=== PATIENT | male | born 1950 | race Caucasian/White ===

== ENCOUNTER 2017-11-30 13:15 | Inpatient (IN) | payer MEDICAID ==
[~2017-11-30] VITALS: Ht 175.3 cm; Wt 86.2 kg
[~2017-11-30 13:15] MED LIST: ATOR20TA PO; FERR-63 PO; LEVO500T2 PO; LOSA25TA12 PO; METO25TA6 PO; OMEP20CA10 PO; SUCR1ORA PO
[2017-11-30] MEDS ORDERED: SODIUM CHLORIDE 0.9% 1,000 ML IV ONE ×2 (16:45→19:00)
[2017-11-30 17:17] LABS: BASOPHILS % 0.4 % (0.0-2.0); EOSINOPHILS % 6.8 % (0.0-5.0); HEMATOCRIT. 47.6 % (42.0-52.0); HEMOGLOBIN. 16.5 g/dL (14.0-18.0); LYMPHOCYTES % 19.1 % (20.0-50.0); MEAN CORPUSCULAR HEMOGLOBIN 30.5 pg (28.0-32.0); MEAN PLATELET VOLUME 8.3 fl (7.4-10.4); NEUTROPHILS % 67.7 % (40.0-76.0); PLATELET 225 x1000/uL (130-400); RED CELL DISTRIBUTION WIDTH 14.8 % (11.6-14.6)
[2017-11-30 17:21] LABS: CHLORIDE 102 mEq/L (98-107)
[2017-11-30 17:23] LABS: PARTIAL THROMBOPLASTIN TIME 29.9 sec (23.4-31.0); PROTHROMBIN TIME 10.3 sec (9.1-11.1)
[2017-11-30 17:29] LABS: ETHANOL BLOOD < 10 mg/dL
[2017-11-30] MEDS ORDERED: PANTOPRAZOLE SODIUM 40 MG/VIAL IV ONE (19:00)
[2017-12-01] VITALS: BP 143/77
[2017-12-01] MEDS: DEXT 5%/0.45% NACL 1000ML 1,000 ML IV SCH ×3 (03:25→21:49)
[2017-12-01 07:13] LABS: CHLORIDE 110 mEq/L (98-107)
[2017-12-01 07:20] LABS: BASOPHILS % 0.8 % (0.0-2.0); EOSINOPHILS % 12.4 % (0.0-5.0); HEMATOCRIT. 40.6 % (42.0-52.0); HEMOGLOBIN. 13.8 g/dL (14.0-18.0); LYMPHOCYTES % 15.3 % (20.0-50.0); MEAN CORPUSCULAR VOLUME 88.2 fL (80.0-94.0); MEAN PLATELET VOLUME 8.2 fl (7.4-10.4); MONOCYTES % 6.7 % (2.0-8.0); NEUTROPHILS % 64.8 % (40.0-76.0); PLATELET 184 x1000/uL (130-400); RED CELL DISTRIBUTION WIDTH 14.6 % (11.6-14.6)
[2017-12-01 08:00] VITALS: BP 119/69
[2017-12-01] MEDS: PANTOPRAZOLE SODIUM 40 MG/VIAL IV SCH ×2 (08:38→21:49)
[2017-12-01] MEDS ORDERED: CLONIDINE 0.1MG TABLET PO PRN (11:30)
[2017-12-01 12:00] VITALS: BP 112/73
[2017-12-01] MEDS: SUCRALFATE 1 G/10 ML UDC PO SCH ×3 (12:07→21:50)
[2017-12-01] MEDS: PATIENT OWN MED PO SCH ×2 (12:08→17:49)
[2017-12-01 16:00] VITALS: BP 111/70
[2017-12-01 20:00] VITALS: BP 123/72
[2017-12-02] VITALS: BP 130/64
[2017-12-02 04:00] VITALS: BP 143/78
[2017-12-02] MEDS: DEXT 5%/0.45% NACL 1000ML 1,000 ML IV SCH ×3 (06:23→21:18)
[2017-12-02] MEDS: SUCRALFATE 1 G/10 ML UDC PO SCH ×4 (06:23→21:19)
[2017-12-02 07:01] LABS: HEMATOCRIT 39.4 % (42.0-52.0); HEMOGLOBIN 13.7 g/dL (14.0-18.0); MEAN CORPUSCULAR HEMOGLOBIN 30.5 pg (28.0-32.0); MEAN CORPUSCULAR VOLUME 87.9 fL (80.0-94.0); PLATELET 184 x1000/uL (130-400); RED BLOOD CELL COUNT 4.48 mill/uL (4.7-6.1); RED CELL DISTRIBUTION WIDTH 14.4 % (11.6-14.6)
[2017-12-02] MEDS ORDERED: DIATR MEGLU/DIATRIZOATE SOLN 30ML PO SCH (09:00)
[2017-12-02] MEDS: PATIENT OWN MED PO SCH ×2 (09:18→17:00)
[2017-12-02] MEDS: PANTOPRAZOLE SODIUM 40 MG/VIAL IV SCH ×2 (09:18→21:19)
[2017-12-02] MEDS ORDERED: IOHEXOL-300 100 ML BOTTLE ONE (14:31)
[2017-12-02] MEDS ORDERED: TAMSULOSIN HCL 0.4MG SR CAPSULE PO NR (17:20)
[2017-12-02 19:23] VITALS: BP 147/75
[2017-12-03] VITALS: BP 122/69
[2017-12-03] MEDS: DEXT 5%/0.45% NACL 1000ML 1,000 ML IV SCH ×2 (03:30→20:26)
[2017-12-03 04:21] VITALS: BP 127/64
[2017-12-03] MEDS: SUCRALFATE 1 G/10 ML UDC PO SCH ×4 (06:20→21:29)
[2017-12-03 07:54] LABS: INR 1.1; PARTIAL THROMBOPLASTIN TIME 28.4 sec (23.4-31.0); PROTHROMBIN TIME 10.6 sec (9.1-11.1)
[2017-12-03 08:00] VITALS: BP 120/73
[2017-12-03 08:08] LABS: HEMOGLOBIN. 14.8 g/dL (14.0-18.0); MEAN CORPUSCULAR HEMOGLOBIN 30.4 pg (28.0-32.0); MEAN CORPUSCULAR VOLUME 88.1 fL (80.0-94.0); MEAN PLATELET VOLUME 8.4 fl (7.4-10.4); PLATELET 192 x1000/uL (130-400); RED BLOOD CELL COUNT 4.88 mill/uL (4.7-6.1); RED CELL DISTRIBUTION WIDTH 14.3 % (11.6-14.6)
[2017-12-03] MEDS: PATIENT OWN MED PO SCH ×2 (08:51→09:22)
[2017-12-03 09:00] LABS: CHLORIDE 107 mEq/L (98-107)
[2017-12-03] MEDS: PANTOPRAZOLE SODIUM 40 MG/VIAL IV SCH ×2 (09:22→21:29)
[2017-12-03] MEDS ORDERED: FENTANYL CITRATE/PF 50MCG/ML 2ML VIAL ONE (11:31)
[2017-12-03] MEDS ORDERED: MIDAZOLAM HCL 5 MG/5 ML VIAL ONE (11:31)
[2017-12-03] MEDS ORDERED: FENTANYL CITRATE/PF 50MCG/ML 2ML VIAL IV ONE (11:36)
[2017-12-03] MEDS ORDERED: MIDAZOLAM HCL 2 MG/2 ML VIAL IV ONE (11:36)
[2017-12-03 12:50] VITALS: BP 134/76
[2017-12-03 12:59] LABS: PLATELET ESTIMATE NORMAL
[2017-12-03 16:00] VITALS: BP 126/73
[2017-12-03 20:00] VITALS: BP 122/74
[2017-12-03] MEDS ORDERED: POTASSIUM CHLORIDE 20MEQ TABLET SR PO SCH (20:30)
[2017-12-04] VITALS: BP 120/75
[2017-12-04] MEDS: DEXT 5%/0.45% NACL 1000ML 1,000 ML IV SCH (03:31)
[2017-12-04 04:13] VITALS: BP 118/72
[2017-12-04] MEDS: SUCRALFATE 1 G/10 ML UDC PO SCH ×3 (06:36→16:27)
[2017-12-04 07:59] LABS: HEMATOCRIT 41.4 % (42.0-52.0); HEMOGLOBIN 14.5 g/dL (14.0-18.0); MEAN CORPUSCULAR HEMOGLOBIN 30.7 pg (28.0-32.0); MEAN CORPUSCULAR VOLUME 87.9 fL (80.0-94.0); PLATELET 208 x1000/uL (130-400); RED BLOOD CELL COUNT 4.72 mill/uL (4.7-6.1); RED CELL DISTRIBUTION WIDTH 14.7 % (11.6-14.6)
[2017-12-04 08:00] VITALS: BP 109/69
[2017-12-04] MEDS: PANTOPRAZOLE SODIUM 40 MG/VIAL IV SCH (09:03)
[2017-12-04] MEDS: PATIENT OWN MED PO SCH ×2 (09:03→16:27)
[2017-12-04 09:38] LABS: CHLORIDE 108 mEq/L (98-107)
[2017-12-04 12:00] VITALS: BP 131/74
[2017-12-04 16:00] VITALS: BP 123/78
[2017-12-04 16:50] VITALS: BP 128/75
== END 2017-12-04 17:30 | disposition home or self-care (01) | DRG 241 ==
LOC: ER 13:15 → EDBEDREQ 19:33 → ENRESERV 20:54 → 6WST 21:00
PROVIDERS: ADMIT Internal Medicine; ATTEND Internal Medicine
PROC: 0DB68ZX Excision of Stomach, Via Natural or Artificial Opening Endoscopic, Diagnostic (ICD-10-PCS; principal; 2017-12-03 12:00)
DX: K25.4 Chronic or unspecified gastric ulcer with hemorrhage (principal); C16.9 Malignant neoplasm of stomach, unspecified; C88.4 Extranodal marginal zone B-cell lymphoma of mucosa-associated lymphoid tissue [MALT-lymphoma]; C85.90 Non-Hodgkin lymphoma, unspecified, unspecified site; E61.1 Iron deficiency; D64.9 Anemia, unspecified; I10 Essential (primary) hypertension; I25.10 Atherosclerotic heart disease of native coronary artery without angina pectoris; K29.71 Gastritis, unspecified, with bleeding; K57.90 Diverticulosis of intestine, part unspecified, without perforation or abscess without bleeding; N40.0 Benign prostatic hyperplasia without lower urinary tract symptoms; I25.2 Old myocardial infarction; Z79.899 Other long term (current) drug therapy; Z92.21 Personal history of antineoplastic chemotherapy; Z87.11 Personal history of peptic ulcer disease; Z86.19 Personal history of other infectious and parasitic diseases
CPT/HCPCS: 36415; 71045; 74177; 80048; 83605; 84443; 84484; 85027; 85044; 86850; 86900; 88305; 88313; 93005; 93970; 96361; 96374; 99285; C9113; G0482; J2250; J3010; J3490; J7030; Q9963; Q9967

== ENCOUNTER 2018-02-01 15:23 | Inpatient (IN) | payer MEDICAID ==
[~2018-02-01] VITALS: Ht 172.7 cm; Wt 72.2 kg
[~2018-02-01 15:23] MED LIST changes: -LEVO500T2 PO; -LOSA25TA12 PO; -METO25TA6 PO; -OMEP20CA10 PO
[2018-02-01] MEDS ORDERED: SODIUM CHLORIDE 0.9% 1,000 ML IV ONE (15:38)
[2018-02-01 16:03] LABS: MEAN CORPUSCULAR HEMOGLOBIN 27.1 pg (28.0-32.0); MEAN CORPUSCULAR VOLUME 83.5 fL (80.0-94.0); MEAN PLATELET VOLUME 7.2 fl (7.4-10.4); PLATELET 724 x1000/uL (130-400); RED BLOOD CELL COUNT 2.46 mill/uL (4.7-6.1); RED CELL DISTRIBUTION WIDTH 18.1 % (11.6-14.6)
[2018-02-01 16:05] LABS: HEMATOCRIT. 20.6 % (42.0-52.0); HEMOGLOBIN. 6.7 g/dL (14.0-18.0)
[2018-02-01 16:10] LABS: CHLORIDE 80 mEq/L (98-107)
[2018-02-01 16:14] LABS: INR 1.2; PROTHROMBIN TIME 11.7 sec (9.1-11.1)
[2018-02-01 17:51] LABS: PLATELET ESTIMATE MARKEDLY INCREASED
[2018-02-01 21:00] VITALS: BP 100/54
[2018-02-01] MEDS: ONDANSETRON HCL 4MG/2ML INJ IV PRN (22:32)
[2018-02-01] MEDS: PANTOPRAZOLE 80 MG in SODIUM CHLORIDE 0.9% 100 ML IV SCH (22:48)
[2018-02-01 23:45] VITALS: BP 101/56
[2018-02-02] VITALS (14 sets, daily range): BP systolic 85–106; BP diastolic 37–57
[2018-02-02] MEDS: DEXT 5%/0.45% NACL KCL 20MEQ/L 1,000 ML IV SCH ×2 (03:24→11:46)
[2018-02-02 07:01] LABS: BASOPHILS % 0.4 % (0.0-2.0); EOSINOPHILS % 1.4 % (0.0-5.0); HEMATOCRIT. 21.9 % (42.0-52.0); HEMOGLOBIN. 7.3 g/dL (14.0-18.0); MEAN CORPUSCULAR HEMOGLOBIN 29.2 pg (28.0-32.0); MEAN CORPUSCULAR VOLUME 87.1 fL (80.0-94.0); MEAN PLATELET VOLUME 7.6 fl (7.4-10.4); MONOCYTES % 6.2 % (2.0-8.0); PLATELET 488 x1000/uL (130-400); RED BLOOD CELL COUNT 2.51 mill/uL (4.7-6.1); RED CELL DISTRIBUTION WIDTH 16.9 % (11.6-14.6)
[2018-02-02] MEDS: ONDANSETRON HCL 4MG/2ML INJ IV PRN (09:06)
[2018-02-02 09:17] LABS: CHLORIDE 86 mEq/L (98-107)
[2018-02-02] MEDS: PANTOPRAZOLE 80 MG in SODIUM CHLORIDE 0.9% 100 ML IV SCH ×2 (11:46→22:15)
[2018-02-02] MEDS ORDERED: DIATR MEGLU/DIATRIZOATE SOLN 30ML PO NR (13:00)
[2018-02-02] MEDS ORDERED: POTASSIUM CHLORIDE INJ 40 MEQ in DEXT 5% WATER 250 ML IV NR (13:30)
[2018-02-02] MEDS ORDERED: DIATR MEGLU/DIATRIZOATE SOLN 120ML ONE (14:22)
[2018-02-02] MEDS ORDERED: LEVOFLOXACIN 500MG PREMIX 100 ML IV SCH (19:00)
[2018-02-02] MEDS: LEVOFLOXACIN 500MG PREMIX 100 ML IV SCH (20:53)
[2018-02-02] MEDS ORDERED: POTASSIUM CHLORIDE INJ 40 MEQ in DEXT 5% WATER 500 ML IV NR (21:00)
[2018-02-03] VITALS: BP 92/59
[2018-02-03] MEDS: DEXT 5%/0.45% NACL KCL 20MEQ/L 1,000 ML IV SCH ×3 (02:26→20:17)
[2018-02-03 04:00] VITALS: BP 100/51
[2018-02-03 06:49] LABS: HEMATOCRIT. 24.5 % (42.0-52.0); HEMOGLOBIN. 8.2 g/dL (14.0-18.0); MEAN CORPUSCULAR VOLUME 86.7 fL (80.0-94.0); MEAN PLATELET VOLUME 7.3 fl (7.4-10.4); PLATELET 444 x1000/uL (130-400); RED BLOOD CELL COUNT 2.83 mill/uL (4.7-6.1); RED CELL DISTRIBUTION WIDTH 16.4 % (11.6-14.6)
[2018-02-03 07:41] LABS: CHLORIDE 96 mEq/L (98-107)
[2018-02-03 08:00] VITALS: BP 85/37
[2018-02-03] MEDS ORDERED: PANTOPRAZOLE SODIUM 40 MG/VIAL IV ONE (10:21)
[2018-02-03 10:53] LABS: PLATELET ESTIMATE SLIGHTLY INCREASED
[2018-02-03 12:00] VITALS: BP 90/58
[2018-02-03] MEDS: PANTOPRAZOLE 80 MG in SODIUM CHLORIDE 0.9% 100 ML IV SCH (13:08)
[2018-02-03] MEDS: SUCRALFATE 1 G/10 ML UDC PO SCH ×3 (13:09→23:17)
[2018-02-03 15:58] VITALS: BP 82/42
[2018-02-03 20:00] VITALS: BP 93/53
[2018-02-03] MEDS: LEVOFLOXACIN 500MG PREMIX 100 ML IV SCH (20:13)
[2018-02-03 21:45] LABS: CLARITY URINE CLEAR (CLEAR); COLOR URINE YELLOW (YELLOW); KETONES URINE NEGATIVE (NEGATIVE); LEUKOCYTE ESTERASE URINE NEGATIVE (NEGATIVE); NITRITE URINE NEGATIVE (NEGATIVE); OCCULT BLOOD URINE NEGATIVE (NEGATIVE); PH URINE 8.5 (4.5-8.0); PROTEIN URINE NEGATIVE (NEGATIVE); SPECIFIC GRAVITY URINE 1.013 (1.005-1.030)
[2018-02-04] VITALS (7 sets, daily range): BP systolic 91–120; BP diastolic 49–74
[2018-02-04] MEDS: DEXT 5%/0.45% NACL KCL 20MEQ/L 1,000 ML IV SCH ×4 (04:32→23:29)
[2018-02-04] MEDS: PANTOPRAZOLE 80 MG in SODIUM CHLORIDE 0.9% 100 ML IV SCH ×3 (04:33→17:51)
[2018-02-04] MEDS: SUCRALFATE 1 G/10 ML UDC PO SCH ×4 (05:13→23:25)
[2018-02-04 07:21] LABS: BASOPHILS % 0.5 % (0.0-2.0); EOSINOPHILS % 2.7 % (0.0-5.0); HEMATOCRIT. 24.3 % (42.0-52.0); LYMPHOCYTES % 7.1 % (20.0-50.0); MEAN CORPUSCULAR HEMOGLOBIN 29.4 pg (28.0-32.0); MEAN CORPUSCULAR VOLUME 88.7 fL (80.0-94.0); MEAN PLATELET VOLUME 7.5 fl (7.4-10.4); MONOCYTES % 5.7 % (2.0-8.0); PLATELET 418 x1000/uL (130-400); RED BLOOD CELL COUNT 2.74 mill/uL (4.7-6.1); RED CELL DISTRIBUTION WIDTH 16.9 % (11.6-14.6)
[2018-02-04 07:27] LABS: INR 1.2; PARTIAL THROMBOPLASTIN TIME 41.4 sec (23.4-31.0); PROTHROMBIN TIME 12.4 sec (9.1-11.1)
[2018-02-04 07:33] LABS: CHLORIDE 104 mEq/L (98-107)
[2018-02-04] MEDS ORDERED: SODIUM CHLORIDE 0.9% 10ML VIAL ONE (13:57)
[2018-02-04] MEDS ORDERED: MIDAZOLAM HCL 5 MG/5 ML VIAL IV PRN (16:20)
[2018-02-04] MEDS ORDERED: FENTANYL CITRATE/PF 50MCG/ML 2ML VIAL IV PRN (16:21)
[2018-02-04] MEDS ORDERED: FENTANYL CITRATE/PF 50MCG/ML 2ML VIAL ONE (16:23)
[2018-02-04] MEDS ORDERED: MIDAZOLAM HCL 5 MG/5 ML VIAL ONE (16:23)
[2018-02-04] MEDS: LEVOFLOXACIN 500MG PREMIX 100 ML IV SCH (20:30)
[2018-02-05] VITALS: BP 96/50
[2018-02-05] MEDS: PANTOPRAZOLE 80 MG in SODIUM CHLORIDE 0.9% 100 ML IV SCH ×3 (03:54→18:00)
[2018-02-05 04:00] VITALS: BP 103/64
[2018-02-05 05:43] LABS: BASOPHILS % 0.3 % (0.0-2.0); EOSINOPHILS % 3.1 % (0.0-5.0); HEMATOCRIT. 25.7 % (42.0-52.0); HEMOGLOBIN. 8.5 g/dL (14.0-18.0); LYMPHOCYTES % 7.9 % (20.0-50.0); MEAN CORPUSCULAR HEMOGLOBIN 28.7 pg (28.0-32.0); MEAN CORPUSCULAR VOLUME 86.8 fL (80.0-94.0); MONOCYTES % 6.7 % (2.0-8.0); PLATELET 417 x1000/uL (130-400); RED BLOOD CELL COUNT 2.96 mill/uL (4.7-6.1); RED CELL DISTRIBUTION WIDTH 16.9 % (11.6-14.6)
[2018-02-05 05:44] LABS: CHLORIDE 105 mEq/L (98-107)
[2018-02-05] MEDS: SUCRALFATE 1 G/10 ML UDC PO SCH ×4 (06:00→23:49)
[2018-02-05] MEDS: DEXT 5%/0.45% NACL KCL 20MEQ/L 1,000 ML IV SCH ×2 (06:44→14:43)
[2018-02-05 08:00] VITALS: BP 108/69
[2018-02-05 12:00] VITALS: BP 99/51
[2018-02-05 16:00] VITALS: BP 99/56
[2018-02-05 20:00] VITALS: BP 108/64
[2018-02-05] MEDS: LEVOFLOXACIN 500MG PREMIX 100 ML IV SCH (20:44)
[2018-02-05] MEDS: HYDROMORPHONE HCL/PF 2MG/ML CPJ IV PRN (23:04)
[2018-02-06] VITALS: BP 99/53
[2018-02-06] MEDS: PANTOPRAZOLE 80 MG in SODIUM CHLORIDE 0.9% 100 ML IV SCH (03:36)
[2018-02-06 04:00] VITALS: BP 101/55
[2018-02-06] MEDS: DEXT 5%/0.45% NACL KCL 20MEQ/L 1,000 ML IV SCH ×3 (07:36→21:10)
[2018-02-06 07:40] LABS: BASOPHILS % 0.3 % (0.0-2.0); EOSINOPHILS % 3.2 % (0.0-5.0); HEMATOCRIT. 25.8 % (42.0-52.0); HEMOGLOBIN. 8.5 g/dL (14.0-18.0); LYMPHOCYTES % 7.9 % (20.0-50.0); MEAN CORPUSCULAR HEMOGLOBIN 28.3 pg (28.0-32.0); MEAN CORPUSCULAR VOLUME 85.5 fL (80.0-94.0); MEAN PLATELET VOLUME 7.3 fl (7.4-10.4); MONOCYTES % 7.4 % (2.0-8.0); NEUTROPHILS % 81.2 % (40.0-76.0); PLATELET 406 x1000/uL (130-400); RED BLOOD CELL COUNT 3.02 mill/uL (4.7-6.1); RED CELL DISTRIBUTION WIDTH 17.1 % (11.6-14.6)
[2018-02-06 08:00] VITALS: BP 103/58
[2018-02-06] MEDS: HYDROMORPHONE HCL/PF 2MG/ML CPJ IV PRN ×3 (08:46→23:38)
[2018-02-06 11:06] LABS: CHLORIDE 102 mEq/L (98-107)
[2018-02-06 12:00] VITALS: BP 112/64
[2018-02-06] MEDS: SUCRALFATE 1 G/10 ML UDC PO SCH ×3 (12:31→23:19)
[2018-02-06] MEDS: PANTOPRAZOLE SODIUM 40 MG/VIAL IV SCH (17:18)
[2018-02-06 18:00] VITALS: BP_SYST 112; BP_SYST 116; BP_DIAS 64; BP_DIAS 68
[2018-02-06] MEDS: LEVOFLOXACIN 500MG PREMIX 100 ML IV SCH (21:06)
[2018-02-07] VITALS: BP 107/50
[2018-02-07 04:00] VITALS: BP 103/60
[2018-02-07] MEDS: SUCRALFATE 1 G/10 ML UDC PO SCH ×2 (04:55→08:37)
[2018-02-07] MEDS: HYDROMORPHONE HCL/PF 2MG/ML CPJ IV PRN (04:55)
[2018-02-07 07:44] LABS: BASOPHILS % 0.4 % (0.0-2.0); EOSINOPHILS % 3.8 % (0.0-5.0); HEMATOCRIT. 24.8 % (42.0-52.0); HEMOGLOBIN. 8.2 g/dL (14.0-18.0); LYMPHOCYTES % 12.1 % (20.0-50.0); MEAN CORPUSCULAR HEMOGLOBIN 28.8 pg (28.0-32.0); MEAN CORPUSCULAR VOLUME 86.8 fL (80.0-94.0); MEAN PLATELET VOLUME 7.1 fl (7.4-10.4); MONOCYTES % 8.7 % (2.0-8.0); PLATELET 392 x1000/uL (130-400); RED BLOOD CELL COUNT 2.86 mill/uL (4.7-6.1); RED CELL DISTRIBUTION WIDTH 17.2 % (11.6-14.6)
[2018-02-07 08:00] VITALS: BP 98/55
[2018-02-07] MEDS: PANTOPRAZOLE SODIUM 40 MG/VIAL IV SCH (08:37)
[2018-02-07] MEDS: DEXT 5%/0.45% NACL KCL 20MEQ/L 1,000 ML IV SCH (08:37)
[2018-02-07 09:21] LABS: CHLORIDE 102 mEq/L (98-107)
[2018-02-07 12:00] VITALS: BP 104/53
[2018-02-07] MEDS ORDERED: HYDROMORPHONE HCL/PF 2MG/ML CPJ IV PRN (12:30)
[2018-02-07 13:37] VITALS: BP 104/53
[2018-02-07 16:00] VITALS: BP 107/64
== END 2018-02-07 17:40 | disposition home or self-care (01) | DRG 720 ==
LOC: ER 15:23 → 8WST 17:05 → ENRESERV 19:15
PROVIDERS: ADMIT Internal Medicine; ATTEND Internal Medicine
PROC: 30233N1 Transfusion of Nonautologous Red Blood Cells into Peripheral Vein, Percutaneous Approach (ICD-10-PCS; principal; 2018-02-01)
PROC: 0D768ZZ Dilation of Stomach, Via Natural or Artificial Opening Endoscopic (ICD-10-PCS; 2018-02-04)
PROC: 0D968ZZ Drainage of Stomach, Via Natural or Artificial Opening Endoscopic (ICD-10-PCS; 2018-02-04)
DX: A41.9 Sepsis, unspecified organism (principal); E43 Unspecified severe protein-calorie malnutrition; K85.90 Acute pancreatitis without necrosis or infection, unspecified; J18.9 Pneumonia, unspecified organism; E87.8 Other disorders of electrolyte and fluid balance, not elsewhere classified; K31.1 Adult hypertrophic pyloric stenosis; E87.1 Hypo-osmolality and hyponatremia; K56.7 Ileus, unspecified; I48.91 Unspecified atrial fibrillation; D64.9 Anemia, unspecified; E87.6 Hypokalemia; R62.7 Adult failure to thrive; I10 Essential (primary) hypertension; I25.10 Atherosclerotic heart disease of native coronary artery without angina pectoris; K25.9 Gastric ulcer, unspecified as acute or chronic, without hemorrhage or perforation; D63.0 Anemia in neoplastic disease; B96.81 Helicobacter pylori [H. pylori] as the cause of diseases classified elsewhere; K29.70 Gastritis, unspecified, without bleeding; N40.0 Benign prostatic hyperplasia without lower urinary tract symptoms; K30 Functional dyspepsia; Z85.028 Personal history of other malignant neoplasm of stomach; Z85.72 Personal history of non-Hodgkin lymphomas; Z87.11 Personal history of peptic ulcer disease; I25.2 Old myocardial infarction; Z92.21 Personal history of antineoplastic chemotherapy; Z68.24 Body mass index [BMI] 24.0-24.9, adult
CPT/HCPCS: 36415; 71045; 74246; 80048; 82270; 84145; 86850; 86900; 86920; 93005; 96360; 96361; 99285; A4216; C1893; C9113; J1170; J1956; J2250; J2405; J3010; J3480; J7030; J7040; J7050; J7060; P9016; Q9963